=== PATIENT | female | born 1960 | race Caucasian/White ===

== ENCOUNTER → 2022-10-11 | Outpatient (CLI) | payer OTHER ==
[2022-10-11 14:20] VITALS: BP 105/76; PULSE 113; TEMP 98.8; BMI 37.8
--- NOTE | 2022-10-11 14:40 | P.BASOAP ---
Subjective Progress Note Date: 10/11/22 She reports lower back pain from her pannus. She often swims three times per week. She reports new insurance coverage from November 2022. She reports seeing her back surgeon and needs surgery. Recommend labs, sleeve, and correction of nutrition. Highest weight 325 pounds. BMI over 47 Objective - Vital Signs Vital signs: Vital Signs Temp 98.8 F 10/11/22 14:05 Pulse 113 H 10/11/22 14:05 Resp BP 105/76 10/11/22 14:05 Pulse Ox FiO2 Intake & Output 10/10/22 10/11/22 10/11/22 18:59 06:59 18:59 Weight 112.945 kg Assessment/Plan Plan: Date: 10/11/22 Initial Weight: 147.418 kg Initial BMI: 49.4 Current Weight: 112.945 kg Current BMI: 37.8 Type of Surgery: Total Volume in Band: Previous Volume: Volume Removed: Volume Added: Band Size:
[2022-10-11 15:46] LABS: INR 0.9 (<1.2); Partial Thromboplastin Time 24.4 sec (22.0-30.0); Prothrombin Time 10.2 sec (9.0-12.0)
[2022-10-11 23:05] LABS: HCT 39.9 % (37.2-46.3); HGB 12.9 g/dL (12.0-15.0); MCH 27.3 pg (27.0-32.0); MCHC 32.3 g/dL (32.0-37.0); MCV 84.5 fL (80.0-97.0); Mean Platelet Volume 10.2 fL (9.5-12.2); NRBC Per 100 WBC 0 /100 WBCS (0.0-0.0); Platelet Count 365 X 10*3/uL (140-440); RBC 4.72 X 10*6/uL (4.10-5.20); RDW 13.8 % (11.5-14.5)
[2022-10-11 23:42] LABS: % Iron Saturation 10.86 (12.00-45.00); ALT 19 U/L (8-44); AST 23 U/L (13-35); African American GFR (CKD) 78.3 (60.0-200.0); Albumin 4.6 g/dL (3.8-4.9); Albumin/Globulin Ratio 1.87 (1.60-3.17); Alkaline Phosphatase 85 U/L (41-126); BUN/Creat Ratio 21.84 Ratio (12.00-20.00); Blood Urea Nitrogen 19.9 mg/dL (9.0-27.0); Calcium 9.5 mg/dL (8.7-10.3); Carbon Dioxide 26.6 mmol/L (20.0-27.5); Chloride 101 mmol/L (96-109); Ferritin 34.6 ng/mL (10.0-291.0); Globulin 2.5 g/dL (1.6-3.3); Glucose 104 mg/dL (70-110); Iron 40 ug/dL (50-170); Magnesium 2.5 mg/dL (1.5-2.4); Non-African American GFR(CKD) 67.5 (60.0-200.0); Phosphorus 4.1 mg/dL (2.4-5.1); Potassium 3.5 mmol/L (3.5-5.5); Sodium 141 mmol/L (135-145); Total Bilirubin <0.15 mg/dL (0.30-1.20); Total Iron Binding Capacity 368 ug/dL (228-460); Total Protein 7.1 g/dL (6.2-8.2)
[2022-10-11 23:59] LABS: Chol/HDL Ratio 4.58 Ratio; LDL Cholesterol,Calculated 143.5 mg/dL (0.0-131.0)
[2022-10-12 13:22] LABS: Zinc, Serum 72 ug/dL (60-130)
[2022-10-13 06:14] LABS: Vitamin A 64 ug/dL (38-106)
[2022-10-13 12:59] LABS: Vit B1(Thiamine) 72 ug/L (38-122)
== END | disposition home or self-care (01) ==
LOC: BARWHC3 13:48
PROVIDERS: ATTEND Surgery Plastic and Reconstructive Surgery
DX: E66.01 Morbid (severe) obesity due to excess calories (principal); Z71.51 Drug abuse counseling and surveillance of drug abuser; E89.1 Postprocedural hypoinsulinemia; D50.8 Other iron deficiency anemias; D50.9 Iron deficiency anemia, unspecified; K91.2 Postsurgical malabsorption, not elsewhere classified; E44.0 Moderate protein-calorie malnutrition; E44.1 Mild protein-calorie malnutrition; E45 Retarded development following protein-calorie malnutrition; E55.9 Vitamin D deficiency, unspecified; K74.1 Hepatic sclerosis; N19 Unspecified kidney failure; T56.894A Toxic effect of other metals, undetermined, initial encounter; K50.90 Crohn's disease, unspecified, without complications
CPT/HCPCS: 84255; 84134; 84425; 80061; 80053; 82607; 82728; 82525; 82746; 83540; 83550; 83735; 84100; 84443; 84590; 84630; 85027; 85610; 85730; 82306; 83970; 83036; 80307; G0480; G0482; G0463; 80323; 99211

== ENCOUNTER → 2025-01-28 | Outpatient (CLI) | payer MEDICARE, OTHER ==
[2025-01-28 14:04] VITALS: BP 108/77; PULSE 84; RESP 16; TEMP 98.2; BMI 34.2
--- NOTE | 2025-01-28 14:40 | P.BASOAP ---
Subjective Progress Note Date: 01/28/25 She lost 20 pounds without trying. She is looking for panniculectomy. She is getting referral from PCP, neurologist, chiropractor. She 3x daily trying to clean her skin for panniculitis. over 3 years. Nystatin powder. Sleeve in 2013. Highest weigth 325 pounds. 100 pound weight loss done. Need weight stable. She has heartburn. Needs Prilosec. She is coming off pain killers. Dr Madrid is pain provider. Needs recent labs. Had RFA of nerve roots and epidural injections. Protein is subpar under 75 grams. Needs labs. She does watrer aerobics ans she was 216 pounds. Objective - Vital Signs Vital signs: Vital Signs Temp 98.2 F 01/28/25 14:02 Pulse 84 01/28/25 14:02 Resp 16 01/28/25 14:02 BP 108/77 01/28/25 14:02 Pulse Ox FiO2 Intake & Output 01/27/25 01/28/25 01/28/25 18:59 06:59 18:59 Weight 102.058 kg Assessment/Plan Plan: Date: 01/28/25 Initial Weight: 147.418 kg Initial BMI: 49.4 Current Weight: 102.058 kg Current BMI: 34.2 Type of Surgery: Vertical Sleeve Gastrectomy Total Volume in Band: Previous Volume: Volume Removed: Volume Added: Band Size:
== END ==
LOC: BARWHC3 13:47
PROVIDERS: ATTEND Surgery Plastic and Reconstructive Surgery
DX: E66.01 Morbid (severe) obesity due to excess calories (principal); Z68.34 Body mass index [BMI] 34.0-34.9, adult; Z88.0 Allergy status to penicillin; Z88.1 Allergy status to other antibiotic agents
CPT/HCPCS: 99211